=== PATIENT | female | born 1995 | race Caucasian/White ===

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

== ENCOUNTER → 2017-01-05 13:00 | Outpatient (CLI) | payer MEDICAID ==
[2016-11-21 14:50] VITALS: BMI 33.9
[2017-01-05 15:53] LABS: APPEARANCE CLEAR (CLEAR); BILIRUBIN NEGATIVE (NEGATIVE); COLOR YELLOW (YELLOW); GLUCOSE NEGATIVE (NEGATIVE); KETONE NEGATIVE (NEGATIVE); LEUKOCYTE ESTERASE NEGATIVE (NEGATIVE); NITRITE NEGATIVE (NEGATIVE); PROTEIN NEGATIVE (NEGATIVE); UROBILINOGEN NORMAL (NORMAL)
== END | disposition home or self-care (01) ==
LOC: D.ER 13:00 → D.LDO 13:00
PROVIDERS: Obstetrics & Gynecology
DX: Z34.92 Encounter for supervision of normal pregnancy, unspecified, second trimester (principal); Z3A.27 27 weeks gestation of pregnancy; R10.9 Unspecified abdominal pain

== ENCOUNTER → 2017-01-11 18:39 | Outpatient (CLI) | payer MEDICAID ==
[2016-11-21 14:50] VITALS: BMI 33.9
== END | disposition home or self-care (01) ==
LOC: D.LABREF 18:39
PROVIDERS: Specialist
DX: O60.00 Preterm labor without delivery, unspecified trimester (principal)

== ENCOUNTER → 2017-01-19 11:02 | Outpatient (CLI) | payer MEDICAID ==
[2016-11-21 14:50] VITALS: BMI 33.9
== END | disposition home or self-care (01) ==
LOC: D.LDO 11:02
DX: O36.8130 Decreased fetal movements, third trimester, not applicable or unspecified (principal); Z3A.29 29 weeks gestation of pregnancy

== ENCOUNTER 2017-01-30 17:17 | Outpatient (CLI) | payer MEDICAID ==
[2016-11-21 14:50] VITALS: BMI 33.9
[~2017-01-30 17:17] MED LIST changes: -FERROUS SULFAT325 MG PO
[2017-01-30 18:10] LABS: APPEARANCE CLEAR (CLEAR); BACTERIA FEW /hpf (NONE SEEN); BILIRUBIN NEGATIVE (NEGATIVE); COLOR YELLOW (YELLOW); GLUCOSE NEGATIVE (NEGATIVE); KETONE NEGATIVE (NEGATIVE); LEUKOCYTE ESTERASE TRACE (NEGATIVE); MUCUS <1+ /lpf (NONE SEEN); NITRITE NEGATIVE (NEGATIVE); PROTEIN NEGATIVE (NEGATIVE); RED CELLS - URINE OCC /hpf (0-5); WHITE CELLS - URINE 0-5 /hpf (0-5); YEAST OCC /hpf (NONE SEEN)
[2017-01-30] MEDS ORDERED: FERROUS SULFAT325 MG PO (18:12)
== END 2017-01-30 19:18 | disposition home or self-care (01) ==
LOC: D.LDO 17:17
PROVIDERS: Obstetrics & Gynecology
DX: Z34.83 Encounter for supervision of other normal pregnancy, third trimester (principal); Z3A.30 30 weeks gestation of pregnancy

== ENCOUNTER → 2017-02-02 13:07 | Outpatient (CLI) | payer MEDICAID ==
[2016-11-21 14:50] VITALS: BMI 33.9
[~2017-02-02 13:07] MED LIST changes: +FERROUS SULFAT325 MG PO
== END | disposition home or self-care (01) ==
LOC: D.LABREF 13:07
PROVIDERS: Specialist
DX: O60.00 Preterm labor without delivery, unspecified trimester (principal)

== ENCOUNTER 2017-02-13 20:46 | Outpatient (CLI) | payer MEDICAID ==
[2016-11-21 14:50] VITALS: BMI 33.9
[2017-02-13 21:12] LABS: APPEARANCE HAZY (CLEAR); BILIRUBIN NEGATIVE (NEGATIVE); COLOR YELLOW (YELLOW); GLUCOSE NEGATIVE (NEGATIVE); KETONE NEGATIVE (NEGATIVE); LEUKOCYTE ESTERASE 1+ (NEGATIVE); NITRITE NEGATIVE (NEGATIVE); PROTEIN NEGATIVE (NEGATIVE); SPECIFIC GRAVITY 1.015 (1.005-1.020)
[2017-02-13 21:13] LABS: BACTERIA MODERATE /hpf (NONE SEEN); CALCIUM OXALATE CRYSTALS 0-5 /hpf (NONE SEEN); MUCUS <1+ /lpf (NONE SEEN); RED CELLS - URINE 0-5 /hpf (0-5); YEAST >1+ WITH HYPHAE /hpf (NONE SEEN)
== END 2017-02-13 21:50 | disposition home or self-care (01) ==
LOC: D.LDO 20:46
PROVIDERS: Obstetrics & Gynecology
DX: Z34.83 Encounter for supervision of other normal pregnancy, third trimester (principal); Z3A.32 32 weeks gestation of pregnancy

== ENCOUNTER → 2017-02-16 12:23 | Outpatient (CLI) | payer MEDICAID ==
[2016-11-21 14:50] VITALS: BMI 33.9
[2017-02-16 13:33] LABS: BASOPHILS 0.2 % (0.0-2.0); EOSINOPHILS 0.7 % (0-7); HEMATOCRIT 29.7 % (36.0-48.0); IMMATURE GRANULOCYTES 0.7 % (0-5); LYMPHOCYTES 22.8 % (15-50); MCH 23.6 pg (26.0-34.0); MCHC 30.3 g/dL (31.0-37.0); MCV 77.7 fL (80.0-100.0); MEAN PLATELET VOLUME 11.7 fL (7.4-10.4); MONOCYTES 7.3 % (2-11); NEUTROPHILS 68.3 % (40-80); PLATELET COUNT 252 10x3/uL (130-400); RBC 3.82 10x6/uL (4.00-5.40); RDW 15.6 % (11.5-14.5); WBC 12.7 10x3/uL (4.8-10.8)
[2017-02-16 13:37] LABS: CALC OSMOLALITY 271 mosm/kg (275-300); CALCIUM 8.6 mg/dL (8.5-10.1); CARBON DIOXIDE 24.2 mmol/L (21.0-32.0); CHLORIDE - SERUM 104 mmol/L (98-107); CREATININE - SERUM 0.5 mg/dL (0.6-1.3); POTASSIUM - SERUM 4.3 mmol/L (3.5-5.1); SODIUM 138 mmol/L (136-145); UREA NITROGEN 4 mg/dL (7-18); eGFR NON AFRICAN AMERICAN > 90 mL/min (90-120)
[2017-02-16 13:40] LABS: GLUCOSE 73 mg/dL (74-106)
[2017-02-16 14:15] LABS: APPEARANCE HAZY (CLEAR); BILIRUBIN NEGATIVE (NEGATIVE); COLOR YELLOW (YELLOW); GLUCOSE NEGATIVE (NEGATIVE); KETONE NEGATIVE (NEGATIVE); LEUKOCYTE ESTERASE TRACE (NEGATIVE); NITRITE NEGATIVE (NEGATIVE); PROTEIN NEGATIVE (NEGATIVE); SPECIFIC GRAVITY 1.005 (1.005-1.020)
[2017-02-16 14:16] LABS: BACTERIA FEW /hpf (NONE SEEN); EPITHELIAL CELLS 0-5 /hpf (0-5); MUCUS <1+ /lpf (NONE SEEN); RED CELLS - URINE RARE /hpf (0-5); WHITE CELLS - URINE 0-5 /hpf (0-5)
== END | disposition home or self-care (01) ==
LOC: D.LDO 12:23
PROVIDERS: Specialist
DX: Z34.83 Encounter for supervision of other normal pregnancy, third trimester (principal); Z3A.33 33 weeks gestation of pregnancy; W19.XXXA Unspecified fall, initial encounter

== ENCOUNTER → 2017-02-21 13:57 | Outpatient (CLI) | payer MEDICAID ==
[2016-11-21 14:50] VITALS: BMI 33.9
[2017-02-21 15:41] LABS: BASOPHILS 0.1 % (0.0-2.0); EOSINOPHILS 1.2 % (0-7); HEMATOCRIT 28.7 % (36.0-48.0); HEMOGLOBIN 8.8 g/dL (12-16); IMMATURE GRANULOCYTES 0.7 % (0-5); LYMPHOCYTES 26.3 % (15-50); MCH 23.5 pg (26.0-34.0); MCHC 30.7 g/dL (31.0-37.0); MCV 76.7 fL (80.0-100.0); MEAN PLATELET VOLUME 10.8 fL (7.4-10.4); MONOCYTES 8.5 % (2-11); NEUTROPHILS 63.2 % (40-80); PLATELET COUNT 216 10x3/uL (130-400); RBC 3.74 10x6/uL (4.00-5.40); RDW 15.9 % (11.5-14.5); WBC 11.1 10x3/uL (4.8-10.8)
[2017-02-21 15:44] LABS: APPEARANCE CLEAR (CLEAR); BILIRUBIN NEGATIVE (NEGATIVE); COLOR YELLOW (YELLOW); GLUCOSE NEGATIVE (NEGATIVE); KETONE NEGATIVE (NEGATIVE); LEUKOCYTE ESTERASE NEGATIVE (NEGATIVE); NITRITE NEGATIVE (NEGATIVE); PROTEIN NEGATIVE (NEGATIVE); UROBILINOGEN NORMAL (NORMAL)
== END | disposition home or self-care (01) ==
LOC: D.LDO 13:57
PROVIDERS: Obstetrics & Gynecology
DX: O26.893 Other specified pregnancy related conditions, third trimester (principal); Z3A.33 33 weeks gestation of pregnancy; R42 Dizziness and giddiness

== ENCOUNTER → 2017-02-23 01:15 | Outpatient (CLI) | payer MEDICAID ==
[2016-11-21 14:50] VITALS: BMI 33.9
[2017-02-23 02:48] LABS: APPEARANCE CLEAR (CLEAR); BILIRUBIN NEGATIVE (NEGATIVE); COLOR YELLOW (YELLOW); GLUCOSE NEGATIVE (NEGATIVE); KETONE NEGATIVE (NEGATIVE); LEUKOCYTE ESTERASE NEGATIVE (NEGATIVE); NITRITE NEGATIVE (NEGATIVE); PH 6.5 (5.0-6.0); PROTEIN NEGATIVE (NEGATIVE); UROBILINOGEN NORMAL (NORMAL)
== END ==
LOC: D.LDO 01:15
PROVIDERS: Specialist
DX: Z34.83 Encounter for supervision of other normal pregnancy, third trimester (principal); Z3A.34 34 weeks gestation of pregnancy

== ENCOUNTER 2017-02-28 20:26 | Outpatient (CLI) | payer MEDICAID ==
[2016-11-21 14:50] VITALS: BMI 33.9
[2017-02-28 20:49] LABS: APPEARANCE HAZY (CLEAR); BILIRUBIN NEGATIVE (NEGATIVE); COLOR YELLOW (YELLOW); GLUCOSE NEGATIVE (NEGATIVE); KETONE NEGATIVE (NEGATIVE); LEUKOCYTE ESTERASE 2+ (NEGATIVE); NITRITE NEGATIVE (NEGATIVE); PROTEIN TRACE mg/dL (NEGATIVE); UROBILINOGEN NORMAL (NORMAL)
[2017-02-28 20:51] LABS: BACTERIA MANY /hpf (NONE SEEN); EPITHELIAL CELLS 0-5 /hpf (0-5); RED CELLS - URINE 0-5 /hpf (0-5)
== END 2017-02-28 21:31 | disposition home or self-care (01) ==
LOC: D.LABREF 20:26
PROVIDERS: Obstetrics & Gynecology
DX: O36.8130 Decreased fetal movements, third trimester, not applicable or unspecified (principal); Z3A.34 34 weeks gestation of pregnancy; R30.9 Painful micturition, unspecified

== ENCOUNTER 2017-03-05 17:15 | Inpatient (IN) | payer MEDICAID ==
[~2017-03-05] VITALS: Ht 157.5 cm; Wt 88.6 kg
[2017-03-05 17:42] LABS: APPEARANCE HAZY (CLEAR); BILIRUBIN NEGATIVE (NEGATIVE); COLOR YELLOW (YELLOW); GLUCOSE NEGATIVE (NEGATIVE); KETONE NEGATIVE (NEGATIVE); LEUKOCYTE ESTERASE 2+ (NEGATIVE); NITRITE NEGATIVE (NEGATIVE); PROTEIN TRACE mg/dL (NEGATIVE); UROBILINOGEN NORMAL (NORMAL)
[2017-03-05 17:44] LABS: BACTERIA MODERATE /hpf (NONE SEEN); EPITHELIAL CELLS 0-5 /hpf (0-5); RED CELLS - URINE 0-5 /hpf (0-5)
[2017-03-05 18:40] LABS: BASOPHILS 0.1 % (0-2); EOSINOPHILS 0.2 % (0-7); HEMATOCRIT 28.9 % (36.0-48.0); HEMOGLOBIN 8.6 g/dL (12-16); IMMATURE GRANULOCYTES 0.5 % (0-5); LYMPHOCYTES 14.9 % (15-50); MCHC 29.8 g/dL (31.0-37.0); MCV 77.3 fL (80.0-100.0); MONOCYTES 6.1 % (2-11); NEUTROPHILS 78.2 % (40-80); PLATELET COUNT 197 10x3/uL (130-400); RBC 3.74 10x6/uL (4.00-5.40); RDW 16.8 % (11.5-14.5); WBC 11.1 10x3/uL (4.8-10.8)
[2017-03-06 07:21] VITALS: BP 132/84
[2017-03-06 11:28] VITALS: BP 126/70; Ht 157.5 cm; Wt 88.6 kg
[2017-03-06 19:19] VITALS: BP 139/71
--- NOTE | 2017-03-06 19:19 | NUR ---
RN ASSUMED CARE OF PT. SEE CPN FOR FULL PT CHARTING.
[2017-03-06 22:39] VITALS: BP 118/62
[2017-03-07 09:45] VITALS: BP 124/77
[2017-03-07 13:28] VITALS: BP 132/76
== END 2017-03-07 14:30 | disposition home or self-care (01) | DRG 781 ==
LOC: D.LDO 17:15 → D.LD 22:48 → D.LDO 03-06 10:16 → D.LD 03-06 10:16 → D.LDO 03-06 10:17 → D.LD 03-07 14:30
PROVIDERS: ADMIT Obstetrics & Gynecology
DX: O23.03 Infections of kidney in pregnancy, third trimester (principal); Z3A.35 35 weeks gestation of pregnancy

== ENCOUNTER 2017-03-09 10:25 | Outpatient (CLI) | payer MEDICAID ==
[2017-03-09 11:23] LABS: BASOPHILS 0.3 % (0-2); HEMATOCRIT 29.9 % (36.0-48.0); HEMOGLOBIN 8.8 g/dL (12-16); IMMATURE GRANULOCYTES 1.5 % (0-5); LYMPHOCYTES 27.7 % (15-50); MCH 22.7 pg (26.0-34.0); MCHC 29.4 g/dL (31.0-37.0); MCV 77.1 fL (80.0-100.0); MEAN PLATELET VOLUME 10.6 fL (7.4-10.4); MONOCYTES 8.7 % (2-11); NEUTROPHILS 60.8 % (40-80); RBC 3.88 10x6/uL (4.00-5.40); RDW 16.9 % (11.5-14.5); WBC 11.4 10x3/uL (4.8-10.8)
[2017-03-09 11:25] LABS: PLATELET COUNT 244 10x3/uL (130-400)
[2017-03-09 11:38] LABS: ALBUMIN 2.1 g/dL (3.4-5.0); ALKALINE PHOSPHATASE 223 U/L (46-116); ALT (SGPT) 19 U/L (10-68); BILIRUBIN - TOTAL 0.37 mg/dL (0.2-1.3); CALC OSMOLALITY 271 mosm/kg (275-300); CALCIUM 8.7 mg/dL (8.5-10.1); CARBON DIOXIDE 26.5 mmol/L (21.0-32.0); CHLORIDE - SERUM 105 mmol/L (98-107); CREATININE - SERUM 0.6 mg/dL (0.6-1.3); GLUCOSE 68 mg/dL (74-106); LDH 192 U/L (81-234); SODIUM 138 mmol/L (136-145); UREA NITROGEN 6 mg/dL (7-18); URIC ACID 3.8 mg/dL (2.6-7.2); eGFR NON AFRICAN AMERICAN > 90 mL/min (90-120)
[2017-03-10 13:27] VITALS: Ht 157.5 cm
[2017-03-10 14:00] LABS: PROTEIN - URINE 11.9 mg/dL (0.0-11.9)
== END 2017-03-10 14:45 | disposition home or self-care (01) ==
LOC: D.LDO 10:25 → D.LD 10:25 → D.LDO 03-10 14:45
PROVIDERS: Obstetrics & Gynecology
DX: O60.03 Preterm labor without delivery, third trimester (principal); Z3A.36 36 weeks gestation of pregnancy; O16.3 Unspecified maternal hypertension, third trimester

== ENCOUNTER → 2017-03-13 17:21 | Outpatient (CLI) | payer MEDICAID ==
[2017-03-13 18:08] LABS: APPEARANCE SLT CLOUDY (CLEAR); BILIRUBIN NEGATIVE (NEGATIVE); COLOR YELLOW (YELLOW); GLUCOSE NEGATIVE (NEGATIVE); KETONE NEGATIVE (NEGATIVE); LEUKOCYTE ESTERASE 1+ (NEGATIVE); NITRITE NEGATIVE (NEGATIVE); PROTEIN TRACE mg/dL (NEGATIVE)
[2017-03-13 18:11] LABS: BACTERIA MODERATE /hpf (NONE SEEN); RED CELLS - URINE 0-5 /hpf (0-5); SPERMATOZOA OCC /hpf (NONE SEEN)
== END | disposition home or self-care (01) ==
LOC: D.LDO 17:21
PROVIDERS: Obstetrics & Gynecology
DX: Z34.83 Encounter for supervision of other normal pregnancy, third trimester (principal); Z3A.36 36 weeks gestation of pregnancy

== ENCOUNTER → 2017-03-14 12:00 | Outpatient (CLI) | payer MEDICAID | END | disposition home or self-care (01) | LOC: D.LDO 12:00 | DX: O16.3 Unspecified maternal hypertension, third trimester (principal); Z3A.36 36 weeks gestation of pregnancy ==

== ENCOUNTER → 2017-03-17 09:05 | Outpatient (CLI) | payer MEDICAID | END | disposition home or self-care (01) | LOC: D.LDO 09:05 | DX: O16.3 Unspecified maternal hypertension, third trimester (principal); Z3A.37 37 weeks gestation of pregnancy ==

== ENCOUNTER 2017-03-21 19:10 | Outpatient (CLI) | payer MEDICAID ==
[2017-03-21 20:08] LABS: APPEARANCE CLEAR (CLEAR); BILIRUBIN NEGATIVE (NEGATIVE); COLOR YELLOW (YELLOW); GLUCOSE NEGATIVE (NEGATIVE); KETONE NEGATIVE (NEGATIVE); LEUKOCYTE ESTERASE TRACE (NEGATIVE); NITRITE NEGATIVE (NEGATIVE); PROTEIN NEGATIVE (NEGATIVE); SPECIFIC GRAVITY 1.025 (1.005-1.020); UROBILINOGEN NORMAL (NORMAL)
[2017-03-21 20:10] LABS: BACTERIA MANY /hpf (NONE SEEN); MUCUS <1+ /lpf (NONE SEEN); RED CELLS - URINE 0-5 /hpf (0-5); WHITE CELLS - URINE 0-5 /hpf (0-5)
[2017-03-21 20:23] LABS: HEMATOCRIT 27.2 % (36.0-48.0); MCH 22.3 pg (26.0-34.0); MCHC 29.4 g/dL (31.0-37.0); MCV 75.8 fL (80.0-100.0); MEAN PLATELET VOLUME 10.9 fL (7.4-10.4); RBC 3.59 10x6/uL (4.00-5.40); RDW 17.6 % (11.5-14.5); WBC 11.4 10x3/uL (4.8-10.8)
[2017-03-21 20:51] LABS: CALC OSMOLALITY 270 mosm/kg (275-300); CALCIUM 8.6 mg/dL (8.5-10.1); CARBON DIOXIDE 25.3 mmol/L (21.0-32.0); CHLORIDE - SERUM 107 mmol/L (98-107); CREATININE - SERUM 0.6 mg/dL (0.6-1.3); GLUCOSE 87 mg/dL (74-106); POTASSIUM - SERUM 3.7 mmol/L (3.5-5.1); SODIUM 137 mmol/L (136-145); UREA NITROGEN 8 mg/dL (7-18); URIC ACID 4.1 mg/dL (2.6-7.2); eGFR NON AFRICAN AMERICAN > 90 mL/min (90-120)
[2017-03-23 11:22] LABS: PROTEIN - URINE 19.3 mg/dL (0.0-11.9)
== END 2017-03-21 21:37 | disposition home or self-care (01) ==
LOC: D.LDO 19:10
PROVIDERS: Obstetrics & Gynecology
DX: O36.8130 Decreased fetal movements, third trimester, not applicable or unspecified (principal); Z3A.38 38 weeks gestation of pregnancy

== ENCOUNTER → 2017-03-23 12:40 | Outpatient (CLI) | payer MEDICAID ==
[2017-03-23 14:09] LABS: BASOPHILS 0.3 % (0-2); EOSINOPHILS 0.6 % (0-7); HEMATOCRIT 29.1 % (36.0-48.0); HEMOGLOBIN 8.6 g/dL (12-16); IMMATURE GRANULOCYTES 0.5 % (0-5); MCH 22.2 pg (26.0-34.0); MCHC 29.6 g/dL (31.0-37.0); MCV 75.2 fL (80.0-100.0); MEAN PLATELET VOLUME 10.8 fL (7.4-10.4); NEUTROPHILS 61.6 % (40-80); PLATELET COUNT 278 10x3/uL (130-400); RBC 3.87 10x6/uL (4.00-5.40); RDW 17.9 % (11.5-14.5); WBC 11.4 10x3/uL (4.8-10.8)
[2017-03-23 14:31] LABS: ALBUMIN 2.3 g/dL (3.4-5.0); ALKALINE PHOSPHATASE 229 U/L (46-116); ALT (SGPT) 12 U/L (10-68); BILIRUBIN - DIRECT 0.19 mg/dL (0.00-0.30); BILIRUBIN - INDIRECT 0.32 mg/dL (0.00-1.00); BILIRUBIN - TOTAL 0.51 mg/dL (0.2-1.3); CALC OSMOLALITY 269 mosm/kg (275-300); CALCIUM 8.9 mg/dL (8.5-10.1); CHLORIDE - SERUM 105 mmol/L (98-107); CREATININE - SERUM 0.5 mg/dL (0.6-1.3); POTASSIUM - SERUM 3.8 mmol/L (3.5-5.1); PROTEIN - SERUM 6.1 g/dL (6.4-8.2); SODIUM 137 mmol/L (136-145); UREA NITROGEN 7 mg/dL (7-18); URIC ACID 4.3 mg/dL (2.6-7.2); eGFR NON AFRICAN AMERICAN > 90 mL/min (90-120)
[2017-03-23 14:32] LABS: GLUCOSE 70 mg/dL (74-106)
[2017-03-23 15:53] LABS: APPEARANCE CLEAR (CLEAR); BILIRUBIN NEGATIVE (NEGATIVE); COLOR YELLOW (YELLOW); GLUCOSE NEGATIVE (NEGATIVE); KETONE NEGATIVE (NEGATIVE); LEUKOCYTE ESTERASE 1+ (NEGATIVE); NITRITE NEGATIVE (NEGATIVE); PROTEIN NEGATIVE (NEGATIVE); UROBILINOGEN NORMAL (NORMAL)
[2017-03-23 15:54] LABS: BACTERIA MODERATE /hpf (NONE SEEN); EPITHELIAL CELLS 0-5 /hpf (0-5); RED CELLS - URINE OCC /hpf (0-5); WHITE CELLS - URINE 0-5 /hpf (0-5)
== END | disposition home or self-care (01) ==
LOC: D.LDO 12:40 → D.LD 03-25 04:35
PROVIDERS: Obstetrics & Gynecology
DX: Z34.83 Encounter for supervision of other normal pregnancy, third trimester (principal); Z3A.38 38 weeks gestation of pregnancy

== ENCOUNTER 2017-03-25 04:46 | Inpatient (IN) | payer MEDICAID ==
[~2017-03-25] VITALS: Ht 154.9 cm; Wt 91.2 kg
[2017-03-25 05:45] LABS: HEMATOCRIT 26.7 % (36.0-48.0); HEMOGLOBIN 7.8 g/dL (12-16); MCH 21.8 pg (26.0-34.0); MCHC 29.2 g/dL (31.0-37.0); MCV 74.8 fL (80.0-100.0); MEAN PLATELET VOLUME 11.1 fL (7.4-10.4); RBC 3.57 10x6/uL (4.00-5.40); RDW 17.7 % (11.5-14.5); WBC 12.8 10x3/uL (4.8-10.8)
[2017-03-25 06:04] VITALS: BP 134/79; Ht 154.9 cm; Wt 91.2 kg
[2017-03-26] VITALS (12 sets, daily range): BP systolic 132–158; BP diastolic 72–100
--- NOTE | 2017-03-26 00:52 | NUR ---
0048 VIABLE BABY BOY DELIVERED CORD BLOOD AND GASES DONE AND SENT OUT,MADELEINE.
--- NOTE | 2017-03-26 01:44 | NUR ---
PT RECEIVED TO ROOM 1223 VIA RECOVERY ROOM NURSE AND FAMILY MEMBER AT THIS TIME. PT AWAKE BUT SLIGHTLY DROWSY. VSS. PT ORIENTED TO ROOM AND CALL LIGHT AT THIS TIME. VERBALIZES UNDERSTANDING. PT RATES PAIN 9/10 AT THIS TIME. INITIATED DILUADID MARINE ENGINE MECHANIC AFTER CONTACTING DR. ZUNIGA CONCERNING MED CONFLICT WITH DEXTROMETHORPHAN. IV NOTED TO LEFT FOREARM INFUSING 1 UNIT OF PRBCS. PATENT. DRESSING CDI. IV NOTED TO RIGHT HAND INFUSING NS WITH PIT. PATENT. DRESSING CDI. HEART RRR. LUNG SOUNDS CLEAR BILATERALLY. BOWEL SOUNDS HYPOACTIVE X4 QUADRENTS. ABDOMEN SOFT WITH TENDERNESS. FUNDUS FIRM AND MIDLINE. U/U. LOW TRANSVERSE INCISION NOTED TO ABDOMEN WITH DRESSING. CDI. ALCANTARA ATTACHED TO RIGHT THIGH DRAINING CLAUDIA URINE. PEDAL PULSES EQUAL BILATERALLY. SCDS INITATED AT THIS TIME TO BLE. PT REQUESTS ICE CHIPS. DENIES OTHER NEEDS. BED LOW. PHONE AND CALL LIGHT IN REACH. SRX2.
--- NOTE | 2017-03-26 02:14 | NUR ---
CONTACTED DR. ZUNIGA CONCERNING MEDICATION CONFLICT OF DEXTOMETHORPHEN AND DILAUDID. DR. ZUNIGA STATES IT SHOULD NOT BE A PROBLEM AND TO CONTINUE WITH DILAUDID SLIDE MACHINE TENDER.
--- NOTE | 2017-03-26 03:00 | NUR ---
PT RESTING QUIETLY AT THIS TIME WITH EYES CLOSED. AROUSED EASILY. MODERATE LOCHIA RUBRA NOTED TO LEONIDES PAD AT THIS TIME. PLACED NEW LEONIDES PAD ON PT. PT REQUESTS ICE WATER. DENIES OTHER NEEDS. FUNDUS FIRM AND MIDLINE. U/U. BED LOW. PHONE AND CALL LIGHT IN REACH. SRX2.
--- NOTE | 2017-03-26 03:51 | NUR ---
PT RESTING QUIETLY AT THIS TIME WITH EYES CLOSED. AROUSED EASILY. MODERATE LOCHIA RUBRA NOTED TO LEONIDES PAD AT THIS TIME. PLACED NEW LEONIDES PAD ON PT. PT REQUESTS ICE WATER. DENIES OTHER NEEDS. BED LOW. PHONE AND CALL LIGHT IN REACH. SRX2.
--- NOTE | 2017-03-26 04:30 | NUR ---
PT SITTING UP IN BED BOTTLE FEEDING AT THIS TIME. MODERATE LOCHIA RUBRA NOTED TO LEONIDES PAD. PLACED NEW PAD ON PT. EMPTIED APPROX 1000 CC FROM ALCANTARA AT THIS TIME WELL. PT REQUESTS ICE PACK. DENIES OTHER NEEDS. BED LOW. PHONE AND CALL LIGHT IN REACH. SRX2.
--- NOTE | 2017-03-26 05:50 | NUR ---
PT LYING IN BED RESTING QUIETLY AT THIS TIME. REQUESTS ICE WATER AND CUP OF ICE. DENIES OTHER NEEDS. BED LOW. PHONE AND CALL LIGHT IN REACH. SRX2.
[2017-03-26 06:14] LABS: RAPID PLASMA REAGIN Non Reactive (Non Reactive)
[2017-03-26 06:37] LABS: BASOPHILS 0.2 % (0-2); EOSINOPHILS 0.1 % (0-7); HEMATOCRIT 33.6 % (36.0-48.0); HEMOGLOBIN 10.3 g/dL (12-16); IMMATURE GRANULOCYTES 0.3 % (0-5); LYMPHOCYTES 12.7 % (15-50); MCH 23.2 pg (26.0-34.0); MCHC 30.7 g/dL (31.0-37.0); MCV 75.7 fL (80.0-100.0); MEAN PLATELET VOLUME 10.7 fL (7.4-10.4); MONOCYTES 7.2 % (2-11); NEUTROPHILS 79.5 % (40-80); PLATELET COUNT 190 10x3/uL (130-400); RBC 4.44 10x6/uL (4.00-5.40); RDW 16.9 % (11.5-14.5); WBC 16.5 10x3/uL (4.8-10.8)
--- NOTE | 2017-03-26 07:45 | NUR ---
PATIENT IS AWAKE AND ALERT, HOLDING HER CHEST TO CHEST. SHE DENIED NEEDS, IV PUMP BEEPING. RESTARTED FLUIDS. IVF INFUSING PER ORDERS AND PIECE MAKER IN USE.
--- NOTE | 2017-03-26 10:45 | NUR ---
PATIENT CALLED FOR ASSISTANCE, HER IV TO THE RIGHT FA HAS EVIDENCE OF INFILTRATION. THERE IS SWELLING BUT NO PAIN. IV CATHETER REMOVED AND ORAL MEDICATIONS GIVEN. SHE IS RATING HER PAIN A 2-3. FAMILY AT THE BEDSIDE. ENCOURAGED HER TO REST. SHE IS ANXIOUS TO GET UP TO THE SHOWER. PLAN TO DO SO AFTER LUNCH.
[2017-03-26 15:29] LABS: BASOPHILS 0.1 % (0-2); EOSINOPHILS 0.1 % (0-7); HEMATOCRIT 31.9 % (36.0-48.0); HEMOGLOBIN 9.9 g/dL (12-16); IMMATURE GRANULOCYTES 0.4 % (0-5); LYMPHOCYTES 23.5 % (15-50); MCH 23.3 pg (26.0-34.0); MCV 75.1 fL (80.0-100.0); MEAN PLATELET VOLUME 10.9 fL (7.4-10.4); NEUTROPHILS 66.9 % (40-80); PLATELET COUNT 183 10x3/uL (130-400); RBC 4.25 10x6/uL (4.00-5.40); RDW 17.2 % (11.5-14.5); WBC 15.6 10x3/uL (4.8-10.8)
--- NOTE | 2017-03-26 19:00 | NUR ---
PT DOCTOR NATUROPATHIC LIGHT, PT REPORTS VOIDING, EMPTIED 500MLS OF LIGHTLY BLOOD TINGED URINE BY SELF WITH NO DIFFICULTY, PT REQUESTED AND PROVIDED ICE PACK, INFORMED PT THAT I WILL BE BACK SHORTLY TO DO ASSESSMENT, PT VERBALIZES UNDERSTANDING, PT REQUESTS PAIN MED WHEN I RETURN, FOB AND FAMILY AT BEDSIDE, DINNER TRAY REMOVED
--- NOTE | 2017-03-26 19:35 | NUR ---
PT VISITNG WITH A ROOM FULL OF FAMILY AND FRIENDS, ADM CHRYSTAL GALINDO PER MD ORDERS, SEE EMAR, INFORMED PT THAT I WILL COME BACK LATER TO DO ASSESSMENT, PT VERBALIZES UNDERSTANDING, DENIES FURTHER NEEDS
--- NOTE | 2017-03-26 20:20 | NUR ---
PT VISITING WITH FAMILY AND FRIENDS, RATES INC PAIN 12/17, DENIES NEEDS AT THIS TIME
--- NOTE | 2017-03-26 21:00 | NUR ---
ASSESSMENT PER FLOW SHEET, VS OBTAINED, FF, ML, U/1, PT REPORTS LITE BLEEDING WITH NO CLOTS, BIKINI INC WITH DANIEL CDI WITH NO DRAINAGE NOTED, LEONIDES PAD OVER INC FOR COMFORT AND MOISTURE CONTROL, PT REPORTS FLATUS, NO BM AND VOIDING BY SELF WITH NO DIFFICULTY, PT DENIES NEEDS AT THIS TIME, FOB HOLDING BABY
--- NOTE | 2017-03-26 21:33 | NUR ---
PT HOLDING BABY, FOB AT BEDSIDE, DENIES NEEDS AT THIS TIME
--- NOTE | 2017-03-26 21:40 | NUR ---
GIUSEPPE AT TOOL STRAIGHTENER, REQUESTED AND PROVIDED TOWELS
--- NOTE | 2017-03-26 22:10 | NUR ---
PT EATING, FEMALE FEEDING BABY, FOB AT BEDSIDE, PT DENIES NEEDS AT THIS TIME
--- NOTE | 2017-03-26 23:29 | NUR ---
PT AMB, GAIT STEADY, WITH BABY IN OPEN CRIB CART, FOB AT SIDE, TO NSY
--- NOTE | 2017-03-27 00:33 | NUR ---
PT AMB TO NSY, GAIT STEADY, FOB AT SIDE
--- NOTE | 2017-03-27 00:35 | NUR ---
PT BACK TO ROOM, WITH BABY, GAIT STEADY, FOB AT SIDE
--- NOTE | 2017-03-27 00:42 | NUR ---
PT BACK IN BED, SCD'S APPLIED AND WORKING PROPERLY, DENIES FURTHER NEEDS
--- NOTE | 2017-03-27 02:11 | NUR ---
PT AWAKE, EATING SNACK, BABY LAYING ON BED BETWEEN PT'S LEGS, PT DENIES NEEDS OR PAIN, FOB AT BEDSIDE
[2017-03-27 03:25] VITALS: BP 136/96
--- NOTE | 2017-03-27 03:25 | NUR ---
BABY TO NSY VIA OPEN CRIB CART PER LASHELL CASTRO, RN, VS OBTAINED PER THIS RN, PT RATES INC PAIN 2, SCD'S CONTINUE ON AND WORKING PROPERLY, PT DENIES NEEDS AT THIS TIME, FOB ASLEEP IN RECLINER
--- NOTE | 2017-03-27 05:10 | NUR ---
PT RESTING WITH EYES CLOSED, RESP QUIET, NO DISTRESS NOTED, LEFT UNDISTURBED AT THIS TIME, FOB ASLEEP IN RECLINER
--- NOTE | 2017-03-27 06:37 | NUR ---
SHIFT REPORT TO DAY SHIFT
[2017-03-27 07:03] VITALS: BP 159/111
--- NOTE | 2017-03-27 07:05 | NUR ---
SBAR HANDOFF RECEIVED FROM Akilah STONE RN. REMAINS STABLE IN ROOM WITH NO NOTED DISTRESS
--- NOTE | 2017-03-27 07:10 | NUR ---
VITALS TAKEN AND RECORDED. PT SITTING ON SIDE OF BED WITH FOB AT BEDSIDE. STATES THAT SHE WANTS TO GO TO THE BR AND THEN TAKE A SHOWER. TOWELS AND WASHCLOTHS PROVIDED. FULL LINEN CHANGE PROVIDED. S/R UP X 2, BED IN LOWEST POSITION, CALL LIGHT WITHIN REACH. STATES NO FURTHER NEEDS AT THIS TIME.
--- NOTE | 2017-03-27 08:00 | NUR ---
ASSISTED WITH PANTIES AND PERIPAD AFTER SHOWER; STATES SHE CANNOT GET ON HERSELF. PERIPAD TO LOWER ABD INCISION AFTER EXAM NOTES NO SIGNS OF REDNESS, SWELLING, DRAINAGE OR FEVER; INSTRUCTED TO REPORT TO SURGEON AT [facility] IF SAME NOTED. FOB ATTENTIVE AT BEDSIDE.
--- NOTE | 2017-03-27 09:15 | NUR ---
PROVIDED PAIN MEDICATION REQUESTED AND ORDERED. BED IN LOWEST POSITION, S/R UP x 2, CALL LIGHT WITHIN REACH. FOB AT BEDSIDE, MOM IS PICKING UP AND TALKING SOFTLY TO HIM. STATES NO FURTHER NEEDS AT THIS TIME. WILL CONTINUE TO MONITOR.
--- NOTE | 2017-03-27 10:24 | NUR ---
REASSESSED PAIN MEDICATION 2 ON NUMERIC SCALE. SLEEPING BUT EASILY AWAKENED. STATES THAT SHE WANTS TO REST FOR A WHILE.
--- NOTE | 2017-03-27 11:42 | NUR ---
PT RESTING QUIETLY WITH EYES CLOSED RESPIRATIONS EVEN AND UNLABORED. EASLIY AWAKEN. SMILED AND LAY BACK DOWN.
--- NOTE | 2017-03-27 12:26 | NUR ---
UP TO BR. PADS PROVIDED. STATES THAT SHE "FEELS BETTER AFTER GETTING THAT NAP". FOB TO NURSERY AND BROUGHT INFANT TO ROOM. FOB SMILING AND TALKING TO INFANT.
[2017-03-27 12:30] VITALS: BP 139/93
--- NOTE | 2017-03-27 14:15 | NUR ---
REMAINS STABLE IN ROOM. HAS WALKED IN [place]. MULTIPLE VISITORS IN ROOM AT FREQUENT INTERVALS. FOB ATTENTIVE AT BEDSIDE. MOTHER REPORTING RELIEF FROM NORCO
--- NOTE | 2017-03-27 16:15 | NUR ---
MOTHER REFUSES PAIN MED AT THIS TIME. UP AND ABOUT IN ROOM AND HALLS. PARENTS BONDING WELL WITH . NO SIGNS OF DISTRESS NOTED OR REPORTED.
[2017-03-27 17:00] VITALS: BP 143/99
--- NOTE | 2017-03-27 17:00 | NUR ---
DENIES HEADACHE OR BLURRED VISION. STATES SHE HAS HAD DIASTOLIC IN 90'S AND 100'S DURING LAST PART OF AND CHRONIC HTN AFTER FIRST . STATES SHE HAS BEEN DRINKING A LOT OF SPRITE TODAY. INSTRUCTED NOT TO DRINK CARBONATED BEVERAGES DUE TO SODIUM CONTENT. INSTRUCTED TO NOTIFY STAFF IMMEDIATELY IF NOTING HEADACHE OR BLURRED VISION. FOB ATTENTIVE AT BEDSIDE. PARENTS BONDING WELL WITH INFANT.
--- NOTE | 2017-03-27 18:10 | NUR ---
REMAINS STABLE IN ROOM. HAS WALKED IN [place] MULTIPLE TIMES TODAY. NO SIGNS OF DISTRESS NOTED OR REPORTED.
[2017-03-27 19:25] VITALS: BP 133/73
--- NOTE | 2017-03-27 19:25 | NUR ---
AWAKE DURING INITIAL ROUNDS. RE-INTRODUCED SELF. V/S TAKEN. ASSESSMENT DONE. STATUS POST PRIMARY C/S FOR NON-REASSURING TRACE. . LOW TRANSVERSE ABD INCISION WITH DANIEL INTACT. LOCHIA RUBRA LIGHT, VOIDING WELL, PASSING FLATUS PER PATIENT. FOB IN THE ROOM. NURSERY NURSE BROUGHT INFANT TO THE ROOM FOR FEEDINGS.
--- NOTE | 2017-03-27 22:51 | NUR ---
PAIN LEVEL "4"/10 FROM BACK AND ABD INCISION. NORCO 10/325 1tab / MOTRIN 600mg 1tab PO GIVEN FOR PAIN MANAGEMENT. FOB/INFANT IN THE ROOM.
--- NOTE | 2017-03-27 22:51 | NUR ---
PAIN LEVEL "4"/10 FROM ABD INCISION. NORCO /MOTRIN PO GIVEN FRO PAIN MANAGEMENT. SEE E-MAR.
--- NOTE | 2017-03-27 23:00 | NUR ---
FOB BROUGHT INFANT TO THE NURSERY.
--- NOTE | 2017-03-28 01:10 | NUR ---
EYES CLOSED. LEFT UNDISTURBED.
--- NOTE | 2017-03-28 03:00 | NUR ---
APPEARS TO BE ASLEEP. FOB IN THE ROOM SLEEPING.
--- NOTE | 2017-03-28 06:03 | NUR ---
SLEPT FAIRLY WELL DURING THE NIGHT. CONTINUING PLAN OF CARE. ANTICIPATES DISCHARGE TODAY.
--- NOTE | 2017-03-28 06:39 | NUR ---
DR. ZUNIGA HERE ON ROUNDS.
--- NOTE | 2017-03-28 06:58 | OP ---
PATIENT NAME: PAVITHRA FLOYD MEDICAL RECORD: [id number] :97 LOCATION:[facility] D.1223 ADMISSION DATE:03/25/17 SURGEON: DILLON WEISS MD DATE OF OPERATION: 03/26/2017 PREOPERATIVE DIAGNOSES: 1. Term intrauterine . 2. Mild preeclampsia. 3. Arrest of dilatation/descent. POSTOPERATIVE DIAGNOSES: 1. Term intrauterine . 2. Mild preeclampsia. 3. Arrest of dilatation/descent. 4. Occiput posterior presentation. PROCEDURE: A primary low transverse section. SURGEON: Dillon Weiss MD ESTIMATED BLOOD LOSS: 1000 cc. INTRAVENOUS FLUIDS: Per anesthesia records. SPECIMENS: Placenta and cord for gases. COMPLICATIONS: None apparent. FINDINGS: 1. noted to be in the occiput posterior presentation. 2. Placenta delivered manually intact, 3-vessel cord noted. 3. Grossly normal adnexa bilaterally. PROCEDURE IN DETAIL: The patient was taken to the operating room where spinal epidural anesthesia was achieved without difficulty. The patient was then prepped and draped in normal sterile fashion in the dorsal supine position. SCDs were on and functioning normally. A Bond catheter had already been placed and was draining freely. A Pfannenstiel skin incision was made, extended downward to the underlying subcutaneous fat to level of the fascia, which was then excised in the midline with a scalpel. The incision was then extended bilaterally using the Parry scissors. The superior and inferior aspects of the fascial incision were then grasped with Cally clamps times 2, tented upward, and sharply dissected from the underlying rectus muscle using the Parry scissors and the Bovie cautery. Rectus muscles were then bluntly in the midline and the peritoneum entered at the superior aspect of the incision bluntly. The peritoneal incision was then stretched and further excised laterally using the Metzenbaum scissors and a bladder blade was then placed into the pelvis. A low transverse incision was made and extended superiorly and inferiorly using the Pelosi method and the 's head was delivered atraumatically followed by the body. Infant was bulb suctioned upon delivery. Cord was clamped times 2, cut, and the infant was handed to the awaiting nursery team. Cord was obtained for gases. The placenta was delivered manually intact, 3-vessel cord noted. Uterus was then exteriorized, cleared of all clots and debris. Uterus was vigorously massaged until good uterine tone was identified. The corners of the uterine incision were then grasped with ring forceps. The OPERATIVE REPORT [id number] PAVITHRA FLOYD R uterine incision was repaired with 0 Vicryl in a running locked fashion times 2. Good hemostasis was noted. The posterior cul-de-sac was then thoroughly irrigated and the uterus was replaced into the pelvis. The anterior cul-de-sac was irrigated and meticulous hemostasis noted from the uterine incision. The counts were correct times 2 for sponges and instruments. The fascia was then repaired with 0 loop PDS times 1 and the skin repaired with warren. The patient tolerated the procedure well, transferred to postanesthesia recovery stable without incident. TRANSINT:[id number] Voice Confirmation ID: [id number] DOCUMENT ID: [id number] DILLON WEISS MD at 0658 CC: [id number] DICTATION DATE: 03/27/17817 SURGICAL NURSE: 03/27/17 1705 ADM IN [facility] [address] [id number]
[2017-03-28 07:30] VITALS: BP 121/67
--- NOTE | 2017-03-28 07:30 | NUR ---
PT IS LYING IN BED. FOB IS LYING BESIDE HER. SHE OFFERS NO COMPLAINTS THIS AM. GEN- AWAKE AND ALERT, LUNGS- CLEAR. HEART- JRRR. ABD- SOFT WITH TENDERNESS NOTED. LOW TRANSVERSE INCISION WITH DANIEL NOTED. EXT- MIN LE EDEMA IN FEET. SHE STATES HER PAIN LEVEL IS A 4. ABDOMINAL PAIN AROUND INCISION. GAVE HER PAIN MED. HER LOCIA IS LIGHT. BED IS LOW, SIDE RAILS UP X 2 AND CALL LIGHT IN REACH.
--- NOTE | 2017-03-28 09:17 | NUR ---
PT IS SLEEPING. FOB AT SIDE SLEEPING. SHE OFFERS NO COMPLAINTS. SIDE RAILS UP X 2 AND BED IS LOW. CALL LIGHT IN REACH.
--- NOTE | 2017-03-28 09:45 | NUR ---
PT IS UP GETTING READY TO GO HOME. SHE OFFERS NO COMPLAINTS.
--- NOTE | 2017-03-28 10:00 | NUR ---
TOBACCO SAMPLER HERE TO SEE PT.
[2017-03-28] MEDS ORDERED: IBUPROFEN600 MG PO (10:21)
[2017-03-28] MEDS ORDERED: HYDROCODONE-APA1 TAB PO (10:22)
--- NOTE | 2017-03-28 10:46 | NUR ---
DISCHARGE INSTRUCTIONS GIVEN TO PT WELL AD PRESCRIPTIONS AND FU APPT CARDS. DISCHARGE INSTRUCTIONS DISCUSSED WITH PT. WHEN PT IS READY AND BABY IS DISCHARGED WE WILL TAKE HER DOWN BY WHEELCHAIR TO VEHICLE.
--- NOTE | 2017-03-28 11:30 | NUR ---
PT REFUSED WHEELCHAIR. SHE WAS ESCORTED WALKING BY VOLUNTEER. MMR WAS GIVEN PRIOR TO DISCHARGE.
== END 2017-03-28 11:30 | disposition home or self-care (01) | DRG 766 ==
LOC: D.WS 04:46 → D.LD 04:46 → D.WS 03-26 01:40
PROVIDERS: ADMIT Obstetrics & Gynecology
PROC: 10D00Z1 Extraction of Products of Conception, Low, Open Approach (ICD-10-PCS; principal; 2017-03-26 00:17)
DX: O14.04 Mild to moderate pre-eclampsia, complicating childbirth (principal); Z3A.38 38 weeks gestation of pregnancy; Z37.0 Single live birth; O64.0XX0 Obstructed labor due to incomplete rotation of fetal head, not applicable or unspecified; O62.1 Secondary uterine inertia

== ENCOUNTER → 2017-04-01 09:51 | Outpatient (CLI) | payer MEDICAID ==
[2017-03-25 06:04] VITALS: BMI 38.0
[~2017-04-01 09:51] MED LIST changes: +HYDROCODONE-APA1 TAB PO; +IBUPROFEN600 MG PO
[2017-04-01 10:29] LABS: BASOPHILS 0.3 % (0-2); EOSINOPHILS 3.5 % (0-7); HEMATOCRIT 34.6 % (36.0-48.0); HEMOGLOBIN 10.5 g/dL (12-16); IMMATURE GRANULOCYTES 0.9 % (0-5); LYMPHOCYTES 30.4 % (15-50); MCH 23.8 pg (26.0-34.0); MCHC 30.3 g/dL (31.0-37.0); MCV 78.5 fL (80.0-100.0); MONOCYTES 6.7 % (2-11); NEUTROPHILS 58.2 % (40-80); RBC 4.41 10x6/uL (4.00-5.40); RDW 18.4 % (11.5-14.5); WBC 9.1 10x3/uL (4.8-10.8)
[2017-04-01 10:30] LABS: PLATELET COUNT 243 10x3/uL (130-400)
[2017-04-01 10:41] LABS: ALBUMIN 2.6 g/dL (3.4-5.0); ALKALINE PHOSPHATASE 174 U/L (46-116); ALT (SGPT) 30 U/L (10-68); BILIRUBIN - DIRECT 0.14 mg/dL (0.00-0.30); BILIRUBIN - INDIRECT 0.36 mg/dL (0.00-1.00); CALC OSMOLALITY 276 mosm/kg (275-300); CALCIUM 8.9 mg/dL (8.5-10.1); CARBON DIOXIDE 27.2 mmol/L (21.0-32.0); CHLORIDE - SERUM 105 mmol/L (98-107); CREATININE - SERUM 0.7 mg/dL (0.6-1.3); GLUCOSE 87 mg/dL (74-106); POTASSIUM - SERUM 3.9 mmol/L (3.5-5.1); PROTEIN - SERUM 6.9 g/dL (6.4-8.2); SODIUM 140 mmol/L (136-145); UREA NITROGEN 11 mg/dL (7-18); URIC ACID 6.8 mg/dL (2.6-7.2); eGFR NON AFRICAN AMERICAN > 90 mL/min (90-120)
== END | disposition home or self-care (01) ==
LOC: D.LDO 09:51
PROVIDERS: Obstetrics & Gynecology
DX: Z34.83 Encounter for supervision of other normal pregnancy, third trimester (principal); Z3A.39 39 weeks gestation of pregnancy

== ENCOUNTER 2018-04-02 21:15 | Emergency (ER) | payer MEDICAID ==
[2017-03-25 06:04] VITALS: BMI 38.0
== END 2018-04-02 23:06 | disposition home or self-care (01) ==
LOC: D.ER 21:15
DX: S83.92XA Sprain of unspecified site of left knee, initial encounter (principal); X50.1XXA Overexertion from prolonged static or awkward postures, initial encounter; Y93.89 Activity, other specified; Y92.89 Other specified places as the place of occurrence of the external cause; I10 Essential (primary) hypertension

== ENCOUNTER 2018-09-04 19:49 | Emergency (ER) | payer OTHER ==
[~2018-09-04] VITALS: Ht 154.9 cm; Wt 81.8 kg
[2018-09-04 19:53] VITALS: Ht 154.9 cm; Wt 81.8 kg
[2018-09-04] MEDS ORDERED: ZOLOFT25 MG PO (19:55)
[2018-09-04 20:10] LABS: BASOPHILS 0.3 % (0-2); EOSINOPHILS 1.2 % (0-7); HEMATOCRIT 38.8 % (36.0-48.0); IMMATURE GRANULOCYTES 0.2 % (0-5); LYMPHOCYTES 46.2 % (15-50); MCH 29.7 pg (26.0-34.0); MCHC 33.5 g/dL (31.0-37.0); MCV 88.6 fL (80.0-100.0); MEAN PLATELET VOLUME 9.9 fL (7.4-10.4); MONOCYTES 7.2 % (2-11); NEUTROPHILS 44.9 % (40-80); PLATELET COUNT 291 10x3/uL (130-400); RBC 4.38 10x6/uL (4.00-5.40); RDW 13.1 % (11.5-14.5); WBC 11.6 10x3/uL (4.8-10.8)
[2018-09-04 20:23] LABS: ALBUMIN 3.4 g/dL (3.4-5.0); ALKALINE PHOSPHATASE 114 U/L (46-116); ALT (SGPT) 51 U/L (10-68); BILIRUBIN - TOTAL 0.37 mg/dL (0.2-1.3); CALC OSMOLALITY 278 mosm/kg (275-300); CARBON DIOXIDE 28.7 mmol/L (21.0-32.0); CHLORIDE - SERUM 104 mmol/L (98-107); CREATININE - SERUM 0.8 mg/dL (0.6-1.3); GLUCOSE 87 mg/dL (74-106); POTASSIUM - SERUM 3.9 mmol/L (3.5-5.1); PROTEIN - SERUM 7.7 g/dL (6.4-8.2); SODIUM 139 mmol/L (136-145); UREA NITROGEN 17 mg/dL (7-18); eGFR NON AFRICAN AMERICAN > 90 mL/min (90-120)
[2018-09-04 20:27] LABS: AMYLASE - SERUM 40 U/L (25-115); LIPASE 94 U/L (73-393); TROPONIN-I < 0.017 ng/mL (0.000-0.060)
[2018-09-04 21:07] LABS: APPEARANCE CLEAR (CLEAR); BILIRUBIN NEGATIVE (NEGATIVE); COLOR YELLOW (YELLOW); GLUCOSE NEGATIVE (NEGATIVE); KETONE NEGATIVE (NEGATIVE); NITRITE NEGATIVE (NEGATIVE); PROTEIN NEGATIVE (NEGATIVE); UROBILINOGEN NORMAL (NORMAL)
[2018-09-04 21:09] LABS: WHITE CELLS - URINE 0-5 /hpf (0-5)
[2018-09-04 21:11] LABS: RED CELLS - URINE OCC /hpf (0-5)
[2018-09-04 21:12] LABS: BACTERIA FEW /hpf (NONE SEEN); EPITHELIAL CELLS 0-5 /hpf (0-5)
[2018-09-04 21:12] LABS: HCG URINE NEGATIVE (NEGATIVE)
[2018-09-04] MEDS ORDERED: TORADOL10 MG PO (23:58)
[2018-09-05 00:20] VITALS: BP 119/80
== END 2018-09-05 00:20 | disposition home or self-care (01) ==
LOC: D.ER 19:49
PROVIDERS: Family Medicine
DX: R10.31 Right lower quadrant pain (principal); I10 Essential (primary) hypertension

== ENCOUNTER 2018-10-27 05:30 | Day surgery (SDC) | payer OTHER ==
[2018-10-26 12:49] LABS: BASOPHILS 0.3 % (0-2); EOSINOPHILS 1.4 % (0-7); HEMATOCRIT 38.8 % (36.0-48.0); HEMOGLOBIN 13.1 g/dL (12-16); IMMATURE GRANULOCYTES 0.2 % (0-5); LYMPHOCYTES 43.3 % (15-50); MCH 29.8 pg (26.0-34.0); MCHC 33.8 g/dL (31.0-37.0); MCV 88.2 fL (80.0-100.0); MEAN PLATELET VOLUME 9.9 fL (7.4-10.4); MONOCYTES 6.1 % (2-11); NEUTROPHILS 48.7 % (40-80); PLATELET COUNT 348 10x3/uL (130-400); RDW 12.5 % (11.5-14.5); WBC 9.2 10x3/uL (4.8-10.8)
[~2018-10-27] VITALS: Ht 154.9 cm; Wt 88.9 kg
[~2018-10-27 05:30] MED LIST changes: +PRINIVIL20 MG PO; +TORADOL10 MG PO; +ZOLOFT25 MG PO
[2018-10-27 06:17] VITALS: BP 121/86; BMI 37.1
[2018-10-27 06:27] LABS: HCG URINE NEGATIVE (NEGATIVE)
[2018-10-27 08:38] VITALS: Ht 154.9 cm; Wt 88.9 kg
--- NOTE | 2018-12-14 17:13 | OP ---
PATIENT NAME: PAVITHRA FLOYD MEDICAL RECORD: [id number] :97 LOCATION:D.OPS ADMISSION DATE: SURGEON: PORFIRIO WEISS MD DATE OF OPERATION: 10/27/2018 PREOPERATIVE DIAGNOSES: 1. Pelvic pain. 2. Polycystic ovarian syndrome. POSTOPERATIVE DIAGNOSES: 1. Pelvic pain. 2. Polycystic ovarian syndrome. PROCEDURE: Laparoscopy and ovarian drilling. SURGEON: Porfirio Weiss MD ANESTHESIA: General endotracheal. INTRAVENOUS FLUIDS: Per anesthesia record. ESTIMATED BLOOD LOSS: Minimal. SPECIMENS: None. FINDINGS: 1. Grossly normal-appearing uterus and fallopian tubes. 2. Bilateral polycystic ovaries. ESTIMATED BLOOD LOSS: Minimal. COMPLICATIONS: None apparent. DESCRIPTION OF PROCEDURE: The patient taken to the operating room where general anesthesia was achieved without difficulty. The patient was prepped and draped in normal sterile fashion in the dorsal lithotomy position in the [facility]. At this point, a sponge stick was placed in the vagina for uterine elevation and the bladder was drained of approximately 100 cc of clear yellow urine. After prep and drape, attention was then turned to the umbilicus where a 5-mm incision was made with the 11 blade and a 5-mm bladeless trocar was used to enter the intraperitoneal space under direct visualization of the laparoscope. The introducer was then removed and the patient was insufflated and opening pressure was found to be less than 10 mmHg. Intraperitoneal placement was confirmed by reintroduction of the laparoscope and a second 5-mm port was placed in the left lower quadrant without difficulty. This was done under direct visualization of the laparoscope. Attention was then turned to the ovaries, where multiple peripheral cysts were noted. A third 5-mm trocar was placed in the right lower quadrant without difficulty under direct visualization of laparoscope. The ovaries were then elevated and the 90-degree angle cautery tip was then used to remove multiple cysts away from the ovarian blood supply. This was performed bilaterally with good hemostasis noted. The pelvis was then thoroughly irrigated. All surgical sites found to be hemostatic. The instruments were removed. The patient was desufflated and the incisions were closed with 3-0 Monocryl in an interrupted fashion. The patient tolerated procedure well, was transferred to postanesthesia recovery stable without OPERATIVE REPORT [id number] PAVITHRA FLOYD incident. TRANSINT:[id number] Voice Confirmation ID: [id number] DOCUMENT ID: [id number] PORFIRIO WEISS MD at 1713 CC: [id number] DICTATION DATE: 12/12/18742 OFFICE MANAGER: 12/12/18904 [facility] 10/27/[address] [id number] [place] [id number]
== END 2018-10-27 14:15 | disposition home or self-care (01) ==
LOC: D.OPS 05:30 → D.PAN 07:30 → D.OPS 14:15
PROVIDERS: Obstetrics & Gynecology
DX: E28.2 Polycystic ovarian syndrome (principal)

== ENCOUNTER 2021-03-09 13:07 | Emergency (ER) | payer OTHER ==
[~2021-03-09] VITALS: Ht 154.9 cm; Wt 88.6 kg
[2021-03-09 13:33] VITALS: BP 110/69; Ht 154.9 cm; Wt 88.6 kg
[2021-03-09] MEDS ORDERED: TESSALON PERLE100 MG PO (15:47)
[2021-03-09] MEDS ORDERED: MUCINEX DM ER1 EAC1 PO (15:47)
== END 2021-03-09 16:04 | disposition home or self-care (01) ==
LOC: D.ER 13:07
DX: J06.9 Acute upper respiratory infection, unspecified (principal); I10 Essential (primary) hypertension